=== PATIENT | male | born 1985 | race Caucasian/White ===

== ENCOUNTER 2024-02-25 15:42 | Emergency (ER) | payer SELFPAY ==
[~2024-02-25] VITALS: Ht 172.7 cm; Wt 70.0 kg
[2024-02-25 15:46] VITALS: O2SAT 98
[2024-02-25] MEDS ORDERED: NAPR-681 PO ×2 (19:01→20:30)
[2024-02-25] MEDS ORDERED: MUPI15CR11 TP ×2 (19:01→20:30)
[2024-02-25] MEDS ORDERED: DOXY100T28 MT ×2 (19:01→20:30)
[2024-02-25 20:36] VITALS: BP 115/66; PULSE 78; RESP 16; TEMP 36.89184; O2SAT 99
== END 2024-02-25 20:40 | disposition home or self-care (01) ==
LOC: ER 15:48
DX: L03.116 Cellulitis of left lower limb (principal)
CPT/HCPCS: 99283